=== PATIENT | male | born 1955 | race Caucasian/White ===

== ENCOUNTER 2018-06-05 12:46 | Emergency (ER) | payer OTHER ==
--- OUTSIDE RECORDS SUMMARY | 2018-06-05 13:57 | XMS REPORT | Continuity of Care Document ---
:1955 External Reference #:[id number] Author Name Ivone Oreilly MD Address [address] [place] [address] Care Team Providers Name Role Phone Toribio Peterson DO Care Team Information Operating Room Tech Unavailable Payers Type Date Identification Numbers Payment Provider Subscriber Policy Number: [id number] Lifetime Benefit SLNS Aneta Zavala PayID: [facility] [address] [address] [place] [address] Advance Directives Description No Information Available Problems Date Description Provider Status Onset: 11/27/2010 No current problems or disability Active Family History Description No Information Available Social History Type Date Description Comments Sex Unknown Marital Status Occupation [employer] Director ETOH Use Occasionally consumes alcohol Tobacco Use Start: Unknown Patient has never smoked Smoking Status Reviewed: 05/31/18 Patient has never smoked Allergies, Adverse Reactions, Alerts Date Description Reaction Status Severity Comments 11/10/2007 Augmentin Active Liver Disfunction - Jaundic Medications Medication Date Status Form Strength Qnty SIG Indications Ordering Provider Doxycycline Hx Tablets 100mg 20tabs 1 by J18.9 Denilson, Monohydrlorne 018 - mouth MD Ivone twice 018 daily 1 hour before a meal No Active Hx Unknown Medications 015 - 018 Immunizations CPT Code Status Date Vaccine Lot # [id number] Given 07/15/2015 Tdap (Adacel) Ages 7 And Above Only [id number] Vital Signs Date Vital Result Comment 05/31/2018 11:38am Body Temperature 100.8 F Weight 163.00 lb Heart Rate 90 /min recheck closer to 100 BP Systolic 112 mmHg BP Diastolic 72 mmHg Respiratory Rate 18 /min Height 69 inches 5'9" 07/19/17 O2 % BldC Oximetry 93 % ra BMI (Body Mass Index) 24.1 kg/m2 07/19/2017 9:06am Weight 169.44 lb Heart Rate 76 /min 72 Reg BP Systolic 104 mmHg BP Diastolic 70 mmHg BP Systolic Recheck 108 mmHg BP Diastolic Recheck 64 mmHg Respiratory Rate 16 /min Height 69 inches 5'9" 07/19/17 BMI (Body Mass Index) 25.0 kg/m2 12/01/2016 11:25am Body Temperature 98.6 F Weight 173.00 lb Heart Rate 60 /min BP Systolic 100 mmHg BP Diastolic 70 mmHg Respiratory Rate 18 /min Height 69 inches 5'9"12/01/16 O2 % BldC Oximetry 97 % BMI (Body Mass Index) 25.5 kg/m2 07/16/2016 9:07am Weight 167.44 lb Heart Rate 72 /min 72 Reg BP Systolic 120 mmHg BP Diastolic 78 mmHg BP Systolic Recheck 104 mmHg BP Diastolic Recheck 68 mmHg Height 69 inches 5'9" BMI (Body Mass Index) 24.7 kg/m2 07/15/2015 1:14pm Weight 163.38 lb Heart Rate 74 /min BP Systolic 110 mmHg BP Diastolic 70 mmHg Respiratory Rate 18 /min Height 68.5 inches 5'8.50" 07/15/15 BMI (Body Mass Index) 24.5 kg/m2 06/29/2014 10:38am BP Systolic 110 mmHg BP Diastolic 70 mmHg 06/29/2014 10:38am Weight 169.00 lb Heart Rate 72 /min 72 Reg BP Systolic 110 mmHg BP Diastolic 80 mmHg Respiratory Rate 18 /min Height 68.75 inches 5'8.75" 05/08/2014 4:14pm Weight 173.00 lb Heart Rate 82 /min BP Systolic 118 mmHg BP Diastolic 76 mmHg Respiratory Rate 18 /min Height 69 inches 5'9" 06/26/2013 9:07am BP Systolic 102 mmHg BP Diastolic 70 mmHg 06/26/2013 9:07am Weight 168.00 lb Heart Rate 66 /min BP Systolic 102 mmHg BP Diastolic 62 mmHg Respiratory Rate 18 /min Height 69 inches 5'9" 06/14/2012 9:34am Body Temperature 97.5 F Weight 170.06 lb Heart Rate 56 /min BP Systolic 118 mmHg BP Diastolic 74 mmHg Respiratory Rate 17 /min Height 69.25 inches 5'9.25" 12/11/2010 9:55am Body Temperature 98.7 F BP Systolic 110 mmHg BP Diastolic 70 mmHg Height 69.25 inches 5'9.25" 12/08/2010 9:52am Body Temperature 99.1 F 650 MG Apap 3 Hours Ago Weight 167.00 lb Heart Rate 64 /min BP Systolic 108 mmHg BP Diastolic 60 mmHg Respiratory Rate 16 /min Height 69 inches 5'9" 11/27/10 11/27/2010 9:03am BP Systolic 104 mmHg BP Diastolic 60 mmHg 11/27/2010 9:03am Weight 163.00 lb Heart Rate 78 /min BP Systolic 108 mmHg BP Diastolic 70 mmHg Respiratory Rate 18 /min Height 69 inches 5'9" 11/25/2009 8:57am Weight 175.00 lb Heart Rate 78 /min BP Systolic 98 mmHg BP Diastolic 62 mmHg Respiratory Rate 18 /min 08/06/2009 9:59am Weight 170.00 lb Heart Rate 80 /min BP Systolic 106 mmHg RIGHT BP Diastolic 58 mmHg RIGHT Respiratory Rate 16 /min 11/22/2008 10:37am BP Systolic 110 mmHg BP Diastolic 68 mmHg 11/22/2008 10:37am Weight 173.00 lb Heart Rate 72 /min BP Systolic 110 mmHg BP Diastolic 70 mmHg Respiratory Rate 24 /min 11/10/2007 10:31am Weight 162.00 lb Heart Rate 72 /min BP Systolic 104 mmHg BP Diastolic 68 mmHg Respiratory Rate 18 /min Results Test Date Facility Test Result H/L Range Note Laboratory test finding 07/19/2017 [facility] TSH 1.90 uIU/mL 0.35-4.94 1 Vitamin B12 207 pg/mL 180-914 Vit D25oh 43 ng/mL 31-100 PSA 0.810 ng/mL 0.000-4.000 2 Lipid 07/19/2017 [facility] Cholesterol 221 mg/dL High 50-199 Triglycerides 101 mg/dL 30-150 HDL 51 mg/dL 40-71 3 Chol/ HDL Ratio 4.3 ratio 4.0-6.7 VLDL 20 mg/dL 2-29 LDL (Calc) 150 mg/dL High 20-129 4 Comprehensive Met Panel-[facility] 07/19/2017 [facility] Sodium 141 mmol/L 135- 146 5 Potassium 4.2 mmol/L 3.5-5.2 Chloride# 105 mmol/L 97-110 6 Carbon Dioxide 26 mmol/L 24-34 Glucose 72 mg/dL 70-105 Creatinine 1.0 mg/dL 0.5-1.4 Calcium 9.4 mg/dL 8.5-10.2 Total Protein 6.9 g/dL 6.0-8.0 Albumin 4.2 g/dL 3.6-4.9 Globulin 2.7 g/dL 2.0-3.5 A/G Ratio 1.6 Ratio 1.0-2.2 Total Bilirubin 0.7 mg/dL 0.1-1.3 Alkaline Phosphatase 42 U/L 24-140 Alt 13 U/L 3-42 Ast 21 U/L 8-42 Sonia Egfr >60 >60 7 Non Sonia Egfr >60 >60 8 Anion Gap 10 mmol/L 7-16 9 BUN 15 mg/dL 6-26 CBC With Auto Diff 07/19/2017 [facility] WBC 4.0 K/uL Low 4.1-11.0 RBC 4.57 M/uL Low 4.60-6.10 Hemoglobin 14.6 gm/dL 13.5-18.0 Hematocrit 43.0 % 41.0-53.0 MCV 94.0 fL 80.0-97.0 MCH 32.0 pg 27.0-32.0 MCHC 34.0 g/dL 32.0-36.0 RDW 13.5 % 11.5-14.5 PLT Count 182 K/ul 140-400 MPV 10.4 FL 7.1-10.7 Neutrophil 45.6 % 35.0-75.0 Lymphocyte 37.9 % 16.0-52.0 Monocyte 11.6 % High 2.0-10.0 Eosinophil 3.9 % 0.0-5.0 Basophil 1.0 % 0.0-4.0 Abs Neutrophils 1.8 K/uL Low 2.1-8.0 Abs Lymphocytes 1.5 K/uL 0.8-5.5 Abs Monocytes 0.5 K/uL 0.1-1.0 Abs Eosinophils 0.2 K/uL 0.0-0.5 Abs Basophils 0.0 K/uL 0.0-0.3 CBC With Auto Diff 07/16/2016 [facility] WBC 4.7 K/uL 4.1-11.0 RBC 4.77 M/uL 4.60-6.10 Hemoglobin 15.2 gm/dL 13.5-18.0 Hematocrit 44.5 % 41.0-53.0 MCV 93.3 fL 80.0-97.0 MCH 31.8 pg 27.0-32.0 MCHC 34.1 g/dL 32.0-36.0 RDW 13.4 % 11.5-14.5 PLT Count 167 K/ul 140-400 Neutrophil 51.4 % 35.0-75.0 Lymphocyte 32.4 % 16.0-52.0 Monocyte 9.2 % 2.0-10.0 Eosinophil 6.0 % High 0.0-5.0 Basophil 1.0 % 0.0-4.0 Abs Neutrophils 2.4 K/uL 2.1-8.0 Abs Lymphocytes 1.5 K/uL 0.8-5.5 Abs Monocytes 0.4 K/uL 0.1-1.0 Abs Eosinophils 0.3 K/uL 0.0-0.5 Abs Basophils 0.0 K/uL 0.0-0.3 Comprehensive Metabolic (CMP) 07/16/2016 [facility] Sodium 137 mmol/L 134- 142 Potassium 4.0 mmol/L 3.5-5.2 Chloride 104 mmol/L 97-109 Carbon Dioxide 28 mmol/L 24-34 Glucose 87 mg/dL 70-105 BUN 17 mg/dL 6-26 Creatinine 1.0 mg/dL 0.5-1.4 Calcium 9.0 mg/dL 8.5-10.2 Total Protein 7.0 g/dL 6.0-8.0 Albumin 4.1 g/dL 3.6-4.9 Globulin 2.9 g/dL 2.0-3.5 A/G Ratio 1.4 Ratio 1.0-2.2 Total Bilirubin 0.9 mg/dL 0.1-1.3 Alkaline Phosphatase 41 U/L 24-140 Alt 12 U/L 3-42 Ast 18 U/L 8-42 Anion Gap 9 mmol/L 6-14 Sonia Egfr >60 >60 10 Non Sonia Egfr >60 >60 11 Lipid 07/16/2016 [facility] Cholesterol 224 mg/dL High 50-199 Triglycerides 60 mg/dL 30-150 HDL 54 mg/dL 40-71 12 Chol/ HDL Ratio 4.1 ratio 4.0-6.7 VLDL 12 mg/dL 2-29 LDL (Calc) 158 mg/dL High 20-129 13 Laboratory test finding 07/16/2016 [facility] TSH 1.83 uIU/mL 0.35-4.94 Vitamin B12 163 pg/mL Low 180-914 Vit D,25 Hydroxy 36 ng/mL 31-100 PSA 0.660 ng/mL 0.000-4.000 14 Basic Metabolic Panel 07/15/2015 [facility] Glucose 77 mg /dL 74-106 (315)- - BUN 21 mg/dL High 7-18 Creatinine 1.1 mg/dL 0.6-1.3 Glom Filtration Rate, Estimate >60 mL/min >60 If >60 mL/min >60 15 BUN/Creat 19.0 ratio Sodium 137 mmol/L 136-145 Potassium 3.8 mmol/L 3.5-5.1 Chloride 102 mmol/L 98-107 Carbon Dioxide 22 mmol/L 21-32 Anion Gap 13 mEq/L 8-16 Calcium 9.3 mg/dL 8.5-10.1 LDL Cholesterol 07/15/2015 [facility] Cholesterol 216 mg/ dL High <200 16 Profile (315)- - Triglycerides 38 mg/dL <150 17 HDL Cholesterol 63 mg/dL >40 18 LDL-Cholesterol 145 mg/dL < 100 19 Laboratory test finding 06/29/2014 N2N/[facility] Import % Baso. 1.7 % 0.0-2.0 % Eos. 2.6 % 0.0-4.0 % Lymph 38 % 20-44 % [place] 8.0 % 2.0-10.0 % Belkis 50 % 50-70 A/G Ratio 1.2 ratio Low 1.6-2.2 Absolute Baso. 0.1 K/ul 0.0-0.3 Absolute Eos. 0.1 K/ul 0.0-0.5 Absolute Lymph. 2.0 K/ul 0.8-4.8 Absolute Meeker. 0.4 K/ul 0.1-1.0 Absolute Belkis. 2.60 K/ul 2.05-7.63 Albumin 4.4 g/dL 3.5-5.0 Alk. Phos. 49.0 U/L 30.0-126.0 Alt 16.0 U/L Low 21.0-72.0 Anion Gap 7.0 mmol/L Low 10.0-20.0 Ast 28.0 U/L 17.0-59.0 BUN 14.0 mg/dL 9.0-21.0 BUN/Creat Ratio 14.0 ratio 12.0-20.0 Calcium 9.7 mg/dL 8.7-10.5 Chloride 106.0 mmol/L 98.0-107.0 Co2 29.0 mmol/L 22.0-30.0 Creatinine-Serum 1.0 mg/dL 0.8-1.5 Globulin 3.8 g/dL 2.7-4.3 Glucose 78.0 mg/dL 75.0-110.0 HCT 44.4 % 37.0-51.0 HGB 14.7 Gm/dl 12.0-16.0 MCH 31.1 pg 26.0-32.0 MCHC 33.2 g/dL 31.0-36.0 MCV 93.7 Fl 80.0-97.0 MPV 10.7 fL High 6.0-10.0 PLT 209 K/ul 140-440 PSA 0.6 ng/mL 0.0-4.0 Potasium 4.0 mmol/L 3.6-5.0 RBC 4.7 M/ul 4.2-6.3 RDW 11.9 % 11.5-14.5 Sodium 142.0 mmil/L 137.0-145.0 20 TSH 1.89 uIU/ml 0.50-6.00 Total Bilirubin 0.8 mg/dL 0.2-1.3 Total Protein 8.2 g/dL 6.3-8.2 WBC 5.2 K/ul 4.1-10.9 eGFR 84.8 mi/minper1.73 Lipid Panel 06/29/2014 N2N/[facility] Chol/HDL Ratio 4.3 ratio Cholesterol 217.0 mg/dL High 50.0-199.0 HDL 51.0 mg/dL 40.0-67.0 LDL, Calculated 135.6 mg/dL High 20.0-129.0 Triglycerides 152.0 mg/dL High 30.0-150.0 vLDL 30.4 ng/dL Laboratory test finding 06/26/2013 N2N/[facility] Import % Baso. 1.1 % 0.0-2.0 % Eos. 2.1 % 0.0-4.0 % Lymph 28 % 20-44 % Meeker 8.0 % 2.0-10.0 % Belkis 61 % 50-70 A/G Ratio 1.3 ratio Low 1.6-2.2 Absolute Baso. 0.1 K/ul 0.0-0.3 Absolute Eos. 0.1 K/ul 0.0-0.5 Absolute Lymph. 2.0 K/ul 0.8-4.8 Absolute Meeker. 0.6 K/ul 0.1-1.0 Absolute Belkis. 4.33 K/ul 2.05-7.63 Albumin 4.2 g/dL 3.5-5.0 Alk. Phos. 45.0 U/L 30.0-126.0 Alt 20.0 U/L Low 21.0-72.0 Anion Gap 8.0 mmol/L Low 10.0-20.0 Ast 25.0 U/L 17.0-59.0 BUN 12.0 mg/dL 9.0-21.0 BUN/Creat Ratio 12.0 ratio 12.0-20.0 Calcium 9.7 mg/dL 8.7-10.5 Chloride 106.0 mmol/L 98.0-107.0 Co2 27.0 mmol/L 22.0-30.0 Creatinine-Serum 1.0 mg/dL 0.8-1.5 Globulin 3.2 g/dL 2.7-4.3 Glucose 92.0 mg/dL 75.0-110.0 HCT 44.1 % 37.0-51.0 HGB 14.8 Gm/dl 12.0-16.0 MCH 31.1 pg 26.0-32.0 MCHC 33.6 g/dL 31.0-36.0 MCV 92.5 Fl 80.0-97.0 MPV 11.3 fL High 6.0-10.0 PLT 161 K/ul 140-440 PSA 0.5 ng/mL 0.0-4.0 Potasium 4.1 mmol/L 3.6-5.0 RBC 4.8 M/ul 4.2-6.3 RDW 11.8 % 11.5-14.5 Sodium 141.0 mmil/L 137.0-145.0 21 TSH 2.64 uIU/ml 0.50-6.00 Total Bilirubin 1.2 mg/dL 0.2-1.3 Total Protein 7.4 g/dL 6.3-8.2 Vitamin D 34.9 ng/mL 30.0-100.0 WBC 7.1 K/ul 4.1-10.9 eGFR 86.1 mi/minper1.73 Lipid Panel 06/26/2013 N2N/[facility] Import Chol/HDL Ratio 4.3 ratio Cholesterol 226.0 mg/dL High 50.0-199.0 HDL 52.0 mg/dL 40.0-67.0 LDL, Calculated 154.6 mg/dL High 20.0-129.0 Triglycerides 97.0 mg/dL 30.0-150.0 vLDL 19.4 ng/dL Hepatic Function 12/11/2010 N2N/[facility] Import Albumin 3.4 g/dL Low 3.5-5.0 Alkaline Phosphatase 107 U/L 30-126 Alt 336 U/L High 21-72 Ast 259 U/L High 17-59 Total Bilirubin 0.5 mg/dL 0.2-1.3 Total Protein 6.8 g/dL 6.3-8.2 Laboratory test finding 12/09/2010 N2N/[facility] Import Atypical Lymph% 17 % High 0-7 Band% 15 % High 0-8 Eosinophil% 2 % 0-5 Gamma Glutamyl Transpeptidase 128 U/L High 11-63 22 Hematocrit 38.4 % 38.0-48.0 Hemoglobin 12.7 gm/dL Low 12.8-17.0 Hepatitis A Antibody -IgM Nonreactive Non-Reactive 23 Hepatitis B Core Antibody-IgM Nonreactive Negative 24 Hepatitis B Surface Antigen Negative Negative 25 Hepatitis C Antibody Nonreactive Nonreactive 26 Lymph% 43 % 17-56 Mean Cell Volume 93.0 fl 80.0-96.0 Mean Corpuscular HGB 30.8 pg 27.0-33.0 Mean Corpuscular HGB Conc 33.1 g/dL 31.7-36.0 Mean Platelet Volume 12.6 fL High 6.6-10.6 Monocyte% 5 % 0-10 Neutrophils% 18 % Low 33-73 Nucleated Red Blood Cell 1 % High -0 Platelet Count 111 K/uL Low 150-400 Platelet Estimate Slight Decrease RBC Morphology Normal Red Blood Count 4.13 M/uL Low 4.20-5.80 Red Cell Distri Width %CV 13.0 % 11.6-15.8 Sedimentation Rate 22 mm/hr High 0-20 27 Signal/Cutoff ratio 0.55 <0.80 Total Cells Counted 100 #CELLS 1 TODAY 2 Beginning 09/27/06 PSA values assayed at [facility] uses chemiluminescence methodology manufactured by [employer] for use on the DXI analyzer. Values obtained with different assay methods or kits can not be used interchangeably. Serum PSA measurement is not an absolute test for malignancy. The PSA value should be used in conjunction with information available from clinical evaluation and other diagnostic procedures. 3 Per NCEP ATP III Guidelines: Results lower than 40 mg/dL are suggestive of increased risk for coronary artery disease. Results > or=to 60 mg/dL are considered a negative risk factor. 4 Per NCEP ATP III Guidelines: Normal Population <130 Patients with medical conditions: CHD/DM Optimal: <100 Borderline high: 130-159 High: 160-189 Very high: >189 5 Updated reference range on new analyzer 6 Updated reference range on new analyzer 7 Concerning GFR Guidelines for Americans: Normal function or mild renal disease, if clinically at risk: >/=60 mL/min Moderately decreased: 30-59 Severely decreased: 15-29 Renal failure: <15 8 Concerning GFR Guidelines: Normal function or mild renal disease, if clinically at risk: >/=60 mL/min Moderately decreased: 30-59 Severely decreased: 15-29 Renal failure: <15 Glomerular Filtration Rate (GFR) is estimated based on the MDRD equation, which assumes a steady state for creatinine as recommended by the National Kidney Disease Education Program in conjunction with the National Institutes of Health and the National Kidney Foundation. Clinical conditions in which it may be necessary to measure GFR by using clearance methods include extremes of age and body size, severe malnutrition or obesity, diseases of skeletal muscle, paraplegia or quadriplegia, vegetarian diet, rapidly changing kidney function, and calculation of the dose of potentially toxic drugs that are excreted by the kidneys. 9 Updated reference range on new analyzer 10 Concerning GFR Guidelines for Americans: Normal function or mild renal disease, if clinically at risk: >/=60 mL/min Moderately decreased: 30-59 Severely decreased: 15-29 Renal failure: <15 11 Concerning GFR Guidelines: Normal function or mild renal disease, if clinically at risk: >/=60 mL/min Moderately decreased: 30-59 Severely decreased: 15-29 Renal failure: <15 Glomerular Filtration Rate (GFR) is estimated based on the MDRD equation, which assumes a steady state for creatinine as recommended by the National Kidney Disease Education Program in conjunction with the National Institutes of Health and the National Kidney Foundation. Clinical conditions in which it may be necessary to measure GFR by using clearance methods include extremes of age and body size, severe malnutrition or obesity, diseases of skeletal muscle, paraplegia or quadriplegia, vegetarian diet, rapidly changing kidney function, and calculation of the dose of potentially toxic drugs that are excreted by the kidneys. 12 Per NCEP ATP III Guidelines: Results lower than 40 mg/dL are suggestive of increased risk for coronary artery disease. Results > or=to 60 mg/dL are considered a negative risk factor. 13 Per NCEP ATP III Guidelines: Normal Population <130 Patients with medical conditions: CHD/DM Optimal: <100 Borderline high: 130-159 High: 160-189 Very high: >189 14 Beginning 09/27/06 PSA values assayed at [facility] uses chemiluminescence methodology manufactured by [employer] for use on the DXI analyzer. Values obtained with different assay methods or kits can not be used interchangeably. Serum PSA measurement is not an absolute test for malignancy. The PSA value should be used in conjunction with information available from clinical evaluation and other diagnostic procedures. 15 Note: Persistent reduction for 3 months or more in an eGFR <60 mL/min/1.73 m2 defines CKD. Patients with eGFR values >/=60 mL/min/1.73 m2 may also have CKD if evidence of persistent proteinuria is present. The original MDRD equation for estimated GFR is not valid for patients less than 18 years of age. Additional information may be found at www.kdoqi.org. 16 Reference Guidelines*: Desirable: ........... < 200 mg/dL Borderline High: ..... 200-239 mg/dL High: ................ >=240 mg/dL * The National Cholesterol Education Program (NCEP) 17 Reference Guidelines*: Normal: ............. < 150 mg/dL Borderline High: .... 150-199 mg/dL High: ............... 200-499 mg/dL Very High: .......... > 500 mg/dL * Source: National Cholesterol Education Program (NCEP) 18 Reference Guidelines*: Low HDL: ..... < 40 mg/dL Normal: ..... 40-60 mg/dL Desirable: ... > 60 mg/dL *The National Cholesterol Education Program(NCEP) 19 Reference Guidelines*: Optimal:........... <100 mg/dL Near Optimal....... 100-129 mg/dL Borderline High.... 130-159 mg/dL High............... 160-189 mg/dL Very High.......... >=190 mg/dL * Source: National Cholesterol Education Program (NCEP) 20 For -Iranian patients multiply result by 1.180 21 For -Iranian patients multiply result by 1.180 22 QUERY: @Ablynx Pat ID: QUERY: @EMR Req #: 23 IgM antibodies to HAV not detected; does not exclude early acute or recovered HAV innfection. 24 IgM anti-HBc not detected. Does not exclude the possibility of exposure to or infection with HBV. 25 HBsAg not detected; does not exclude the possibility of exposure to or early acute infections with HBV. 26 Antibodies to HCV not detected; does not exclude early acute HCV infection. 27 SENT FOR PATH REVIEW QUERY: @EMR Pat ID: QUERY: @EMR Req #: Procedures Date Code Description Status 05/31/2018 18902 Measure Blood Oxygen Level Single Determination Completed 05/05/2018 79795607 Colonoscopy Completed 12/01/2016 32059 Measure Blood Oxygen Level Single Determination Completed 11/25/2009 03760 Electrocardiogram Complete Completed 04/05/2008 99413 Colonoscopy Flexible Diagnostic Completed 11/10/2007 48426 Electrocardiogram Complete Completed Encounters Type Date Location Provider Dx Diagnosis Office Visit 07/19/2017 [facility] Isauro El DO Z00.00 Encntr for general 9:00a adult medical exam w/o abnormal findings Z12.5 Encounter for screening for malignant neoplasm of prostate Office Visit 12/01/2016 11:30a [facility] Princess Us PA J06.9 Acute upper respiratory infection, unspecified Office Visit 07/16/2016 9:00a [facility] Isauro El DO Z00.00 Encntr for general adult medical exam w/o abnormal findings Z12.5 Encounter for screening for malignant neoplasm of prostate Office Visit 07/15/2015 1:15p [facility] Anahy Vazquez, Z00.00 Encntr for general [employer] adult medical exam w/o abnormal findings Z13.220 Encounter for screening for lipoid disorders Z13.1 Encounter for screening for diabetes mellitus Z23 Encounter for immunization Plan of Treatment Future Appointment(s):06/14/2018 8:45 am - Toribio Peterosn, DO at [facility]07/21/2018 9:00 am - Toribio Peterson, DO at [facility]05/31/2018 - Ivone Oreilly MDJ18.9 Pneumonia, unspecified organismNew Medication:Doxycycline Monohydrate 100 mg - 1 by mouth twice daily 1 hour before a mealNew Xrays:Chest Xray, 2 Views, Scheduled: 05/31/18Comments:based on exam,this is a clinical diagnosis, this appears to be pneumonia, exam findings are for wide spread mild rhonchi and abnormal lung sounds, with faster heart rate and fever. check chest xray advised pt we will treat with antibiotics as noted, reviewed gi se, rash, etc, call for concernshe should call/seek care for increasing shortness of breath, feeling worse, new sxs, fever that is not improved in 24-48 hours, mental status changes, wheezing, new gi sxs, chest pain, or any other concerns.appetite and energy should also improve. take a probiotic pill or eat yogurt daily recommend rest, ibuprofen/tyl for discomforts, push fluids and foods. take a probiotic daily with active culture yogurtand fruits/veg raw.will take several weeks to return to normal. call if not improving as expected.Follow up:chest today please; give portal info; fu visit Dr Peterson in 2 weeks for fu pneumonia
[2018-06-05] MEDS ORDERED: Albuterol/Ipratropium NEB.SOL* Albuterol 2.5 MG/Ipratropium 0.5 MG 3 ML INH ONE (14:27)
[2018-06-05 14:31] VITALS: BP 146/87
--- NOTE | 2018-06-05 14:33 | UC ---
Respiratory Complaint HPI - HPI Summary HPI Summary: Patient had been seen for his cough, was placed on ABX doxycyline for URI, did have a chest xray that was negatvie for pneumonia, positive for COPD. He was placed on 20 mg of prednisone daily, and given an ALbuterol HFA. He is not improving, cough is still very harsh, still taking the doxycyline and has vomited due to the coughing. - History of Current Complaint Stated Complaint: COUGH,VOMITING Time Seen by Provider: 06/05/18 14:00 Hx Obtained From: Patient Onset/Duration: Sudden Onset, Lasting Weeks Timing: Constant Severity Initially: Moderate Severity Currently: Severe Associated Signs And Symptoms: Positive: Fever, Wheezing, URI - Allergies/Home Medications Allergies/Adverse Reactions: Allergies Allergy/AdvReac Type Severity Reaction Status Date / Time amoxicillin [From Augmentin] Allergy jaundice Verified 06/05/18 14:07 clavulanic acid Allergy jaundice Verified 06/05/18 14:07 [From Augmentin] Home Medications: Home Medications Acetaminophen [APAP] 650 mg PO DAILY PRN 06/05/18 [History Confirmed 06/05/18] Albuterol HFA INHALER* [Ventolin HFA Inhaler*] 2 puff INH Q4H PRN 06/05/18 [ History Confirmed 06/05/18] Benzonatate 200 mg PO Q8H PRN 06/05/18 [History Confirmed 06/05/18] Guaifenesin/Dextromethorphan [Mucinex Dm ER 600-30 mg Tablet] 2 each PO BID 11/17 [History Confirmed 06/05/18] predniSONE TAB* [Deltasone 20 MG TAB*] 20 mg PO BID 06/05/18 [History Confirmed 06/05/18] PMH/Surg Hx/FS Hx/Imm Hx Previously Healthy: Yes - Surgical History Surgical History: Yes Surgery Procedure, Year, and Place: HERNIA REPAIR - Family History Known Family History: Positive: Respiratory Disease - Social History Alcohol Use: Occasionally Substance Use Type: None Smoking Status (MU): Never Smoked Tobacco Review of Systems Constitutional: Chills, Fatigue Skin: Negative Eyes: Negative ENT: Nasal Discharge, Sinus Congestion Respiratory: Shortness Of Breath, Cough Cardiovascular: Negative Gastrointestinal: Negative Genitourinary: Negative Motor: Negative Neurovascular: Negative Musculoskeletal: Negative Neurological: Negative Psychological: Negative Is Patient Immunocompromised?: No All Other Systems Reviewed And Are Negative: Yes Physical Exam Triage Information Reviewed: Yes Appearance: Well-Nourished, Ill-Appearing, Pain Distress Vital Signs Reviewed: Yes Eye Exam: Normal ENT: Positive: Pharyngeal erythema, TMs normal Dental Exam: Normal Neck exam: Normal Neck: Positive: Supple, No Lymphadenopathy Respiratory Exam: Normal Respiratory: Positive: No respiratory distress - at rest, No accessory muscle use, Respiratory distress - with exertion, Decreased breath sounds, Wheezing, Expiration, Inspiration Cardiovascular Exam: Normal Cardiovascular: Positive: RRR, No Murmur, Pulses Normal Abdominal Exam: Normal Abdomen Description: Positive: Nontender, No Organomegaly, Soft Bowel Sounds: Positive: Present Musculoskeletal Exam: Normal Neurological Exam: Normal Psychological Exam: Normal Skin Exam: Normal Re-Evaluation - Re-Evaluation First Eval Change: Improved - after duo neb, breathing is easiery, more audible air flow Respiratory Course/Dx - Course Course Of Treatment: hx obtained,exam performed ,meds reviewed, neb treatment given with good results, chest xray negative, treated for bronchitis - Differential Dx/Diagnosis Differential Diagnosis/HQI/PQRI: Asthma, Bronchitis, CHF, Laryngitis, Lower Resp Infection, Sinusitis Provider Diagnoses: bronchitis. sob, fever Discharge - Sign-Out/Discharge Documenting (check all that apply): Patient Departure All imaging exams completed and their final reports reviewed: Yes - Discharge Plan Condition: Stable Disposition: HOME Patient Education Materials: Acute Bronchitis (ED) Referrals: Toribio Peterson DO [Primary Care Provider] - Additional Instructions: 1. Use the nebulizer morning and night for the next week and then as needed. 2. COntinue with the doxycyline 3. Use the prednisone 2 tablets in the morning daily for 7 days 4. Rest, Drink plenty of fluids 5. You can use the mucinex and tesslon pearls as needed. 6. Follow up as needed. - Billing Disposition and Condition Condition: STABLE Disposition: Home
--- NOTE | 2018-06-05 15:39 | RAD ---
INDICATION: Productive cough x5 days COMPARISON: None TECHNIQUE: PA and lateral views of the chest were obtained. FINDINGS: The heart and mediastinum are normal in size and contour. The lungs are grossly clear. There is no evidence of large pleural effusion. Visualized bones are normal for the patient's age. There is no radiographic evidence of free air beneath the diaphragm IMPRESSION: No radiographic evidence of acute cardiopulmonary disease.
== END 2018-06-05 15:59 | disposition home or self-care (01) ==
LOC: UCCORT 12:46
DX: J40 Bronchitis, not specified as acute or chronic (principal); R06.02 Shortness of breath; R50.9 Fever, unspecified; Z80.0 Family history of malignant neoplasm of digestive organs; Z88.1 Allergy status to other antibiotic agents
CPT/HCPCS: 71046; 99212; A9270-GY; G0463